=== PATIENT | female | born 1950 | race Caucasian/White ===

== ENCOUNTER 2018-02-20 14:21 | Emergency (ER) | payer OTHER, SELFPAY ==
[2018-02-20] VITALS (13 sets, daily range): BP systolic 100–177; BP diastolic 69–93; PULSE 75–103; RESP 14–18; TEMP 36.4; O2SAT 91–100; BMI 27.3
--- NOTE | 2018-02-20 14:40 | ED.ABDPAIN ---
HPI - Abdominal Pain <Ciara Barbosa PA-C - Last Filed: 02/20/18 22:38> General Chief Complaint: Abdominal Pain Stated Complaint: 'really bad stomach ache' Time Seen by Provider: 02/20/18 14:38 Source: patient Mode of arrival: ambulatory Limitations: no limitations History of Present Illness HPI narrative: This 67-year-old female comes in due to abdominal pain. She states that she has had ongoing intermittent postprandial abdominal pain for several years. She states she avoids drinking excess wine, coffee, fatty or heavy foods due to this and seems to do better, but she will still get flare-ups of pain that seemed to resolve on their own or with taking Tums and a probiotic. Today, after eating brunch pain came on again in the usual location but seems to be gradually worsening rather than resolving as usual. She points to the epigastric area. She states that pain is constant, nonradiating, no exacerbating or alleviating features. She states that she will occasionally have some nausea or vomiting with this but none currently. She does not have fever. She denies any urinary symptoms. She denies any bowel habit changes and states she had a normal bowel movement today. She denies chest pain or angelina dyspnea but states it is painful to take a deep breath. Related Data Home Medications Medication Instructions Recorded Confirmed No Known Home Medications 02/20/18 02/20/18 Allergies Allergy/AdvReac Type Severity Reaction Status Date / Time No Known Drug Allergies Allergy Verified 02/20/18 14:28 Review of Systems <Ciara Barbosa PA-C - Last Filed: 02/20/18 22:38> Review of Systems All systems reviewed & are unremarkable except as noted in HPI and below Exam <Ciara Barbosa PA-C - Last Filed: 02/20/18 22:38> Initial Vital Signs Initial Vital Signs: Vital Signs Pulse Rate 103 H 02/20/18 14:25 Respiratory Rate 18 02/20/18 14:25 Blood Pressure 129/93 H 02/20/18 14:25 Pulse Oximetry 100 02/20/18 14:25 GENERAL APPEARANCE: Patient sitting comfortably, in no distress. HEENT: PERRL, EOMI, no scleral icterus, normal oropharynx NECK: Supple LUNGS: Clear to auscultation bilaterally. HEART: Rate and rhythm regular, normal S1 and S2, no S3 or S4. ABDOMEN: Soft, nondistended, bowel sounds present x 4 quadrants, no masses palpable, no hepatosplenomegaly, no CVAT. She has moderate tenderness from the epigastrium over to the right upper quadrant with +Parekh sign. Minimal tenderness over the left lower quadrant to midline, none elsewhere. No guarding or rebound EXTREMITIES: No edema, no cyanosis DERMATOLOGIC: No jaundice or exanthem NEUROLOGIC: Alert and oriented with normal speech and coordination <Paulo Blanchard DO - Last Filed: 02/20/18 22:44> Initial Vital Signs Initial Vital Signs: Vital Signs Pulse Rate 103 H 02/20/18 14:25 Respiratory Rate 18 02/20/18 14:25 Blood Pressure 129/93 H 02/20/18 14:25 Pulse Oximetry 100 02/20/18 14:25 Course <Ciara Babrosa PA-C - Last Filed: 02/20/18 22:38> Orders Ordered: ED Orders 02/20/18 14:10 Complete Blood Count AUTO DIFF Stat Comprehensive Metabolic Panel Stat Lipase Stat Procalcitonin Stat Troponin I Stat 02/20/18 14:50 EKG-12 Lead Stat 02/20/18 14:51 US abdomen complete Stat 02/20/18 16:00 CT abdomen pelvis w con Stat 02/20/18 16:57 Lactate (Lactic Acid) Stat Discontinued Medications Hydromorphone HCl (Dilaudid) 1 mg IV NOW ONE Stop: 02/20/18 15:54 Last Admin: 02/20/18 16:00 Dose: 0.5 mg Hydromorphone HCl (Dilaudid) 0.5 mg IV NOW ONE Stop: 02/20/18 16:57 Last Admin: 02/20/18 16:58 Dose: 0.5 mg Sodium Chloride (Normal Saline 0.9%) 1,000 mls @ 1,000 mls/hr IV BOLUS ONE Stop: 02/20/18 15:49 Last Infusion: 02/20/18 17:11 Dose: 1,000 mls/hr Admin: 02/20/18 15:30 Dose: 1,000 mls/hr Sodium Chloride (Normal Saline 0.9%) 1,000 mls @ 1,000 mls/hr IV BOLUS ONE Stop: 02/20/18 18:50 Last Infusion: 02/20/18 21:32 Dose: 1,000 mls/hr Admin: 02/20/18 17:58 Dose: 1,000 mls/hr Promethazine HCl 25 mg/ Sodium (Chloride) 51 mls @ 204 mls/hr IV NOW ONE Stop: 02/20/18 20:23 Last Infusion: 02/20/18 21:34 Dose: 0 mls/hr Admin: 02/20/18 20:52 Dose: 204 mls/hr Ketorolac Tromethamine (Toradol) 30 mg IV NOW ONE Stop: 02/20/18 14:51 Last Admin: 02/20/18 15:33 Dose: Not Given Metoclopramide HCl (Reglan) 10 mg IV NOW ONE Stop: 02/20/18 17:51 Last Admin: 02/20/18 17:57 Dose: 10 mg Ondansetron HCl (Zofran) 4 mg IV NOW ONE Stop: 02/20/18 15:08 Last Admin: 02/20/18 15:30 Dose: 4 mg Reevaluation(s) Reevaluation #1: 1550: Patient reported improvement in pain, however she has had some recurrence of nausea now and is vomiting despite 2 doses of Zofran. Reglan ordered. Reviewed findings with Dr. Jimenez who agrees surgical consult is needed despite lack of clear findings on imaging to explain symptoms and white count. She does have a very large hiatal hernia. Reevaluation #2: 1830: Spoke with Dr. Mendes, university demonstrator for surgery, who reviewed CT scan and advise that he thinks this is more likely a paraesophageal hernia, concerned about strangulation. He states that this is more of a dumbbell shaped, he can see virtually all of the stomach in the chest including migration through the diaphragm. He advised urgent transfer to a larger surgical center. [facility] has been contacted. Patient was reassessed, currently non tender and resting comfortably Reevaluation #3: 2019: Following multiple discussions with [facility], [place], there coordinator has informed me she does have an accepting surgeon, Dr. Ocampo. At [facility]. Films have been transferred. Patient has been stable until now but just began to vomit again. Promethazine ordered. We are waiting for bed assignment and [facility] will coordinate getting the ambulance here for transfer Additional Reevaluation(s): 9932: I spoke with [facility] again. They had ordered a BLS rig that was not to arrive for 3 hr. Advise that patient needs urgent ALS transport. They have arranged with [facility] to be here in 30 min. Patient is comfortable for now and vomiting has resolved. She remains afebrile 2345: ALS rig never arrived. We have phoned [facility]. They apparently tried to discharge [place] with 1 of our local rigs however they are unable to take one out of service unless [place] or [place] cannot take. We have called [place] and they can have ALS rig here in 40 minutes. Dispatched. Patient is comfortable and stable. Has not had recurrent vomiting and declines more pain medication Vital Signs - 8 hr 02/20/18 15:34 02/20/18 16:30 02/20/18 17:00 Temperature Pulse Rate 97 H 94 H 75 Respiratory Rate 18 Blood Pressure [Right Arm] 137/91 H 114/69 108/78 Pulse Oximetry 93 93 02/20/18 17:54 02/20/18 19:00 02/20/18 19:30 Temperature Pulse Rate 86 89 92 H Respiratory Rate 16 Blood Pressure [Right Arm] 116/78 119/76 120/73 Pulse Oximetry 92 92 92 02/20/18 20:30 02/20/18 20:41 02/20/18 20:50 Temperature 97.6 F Pulse Rate 96 H 78 Respiratory Rate 14 Blood Pressure [Right Arm] 122/77 H 177/87 H Pulse Oximetry 91 95 02/20/18 21:18 02/20/18 21:30 02/20/18 22:30 Temperature 97.6 F Pulse Rate 98 H 97 H Respiratory Rate 16 16 Blood Pressure [Right Arm] 100/70 118/88 H Pulse Oximetry 95 99 <Paulo Blanchard, DO - Last Filed: 02/20/18 22:44> Orders Ordered: ED Orders 02/20/18 14:10 Complete Blood Count AUTO DIFF Stat Comprehensive Metabolic Panel Stat Lipase Stat Procalcitonin Stat Troponin I Stat 02/20/18 14:50 EKG-12 Lead Stat 02/20/18 14:51 US abdomen complete Stat 02/20/18 16:00 CT abdomen pelvis w con Stat 02/20/18 16:57 Lactate (Lactic Acid) Stat Discontinued Medications Hydromorphone HCl (Dilaudid) 1 mg IV NOW ONE Stop: 02/20/18 15:54 Last Admin: 02/20/18 16:00 Dose: 0.5 mg Hydromorphone HCl (Dilaudid) 0.5 mg IV NOW ONE Stop: 02/20/18 16:57 Last Admin: 02/20/18 16:58 Dose: 0.5 mg Sodium Chloride (Normal Saline 0.9%) 1,000 mls @ 1,000 mls/hr IV BOLUS ONE Stop: 02/20/18 15:49 Last Infusion: 02/20/18 17:11 Dose: 1,000 mls/hr Admin: 02/20/18 15:30 Dose: 1,000 mls/hr Sodium Chloride (Normal Saline 0.9%) 1,000 mls @ 1,000 mls/hr IV BOLUS ONE Stop: 02/20/18 18:50 Last Infusion: 02/20/18 21:32 Dose: 1,000 mls/hr Admin: 02/20/18 17:58 Dose: 1,000 mls/hr Promethazine HCl 25 mg/ Sodium (Chloride) 51 mls @ 204 mls/hr IV NOW ONE Stop: 02/20/18 20:23 Last Infusion: 02/20/18 21:34 Dose: 0 mls/hr Admin: 02/20/18 20:52 Dose: 204 mls/hr Ketorolac Tromethamine (Toradol) 30 mg IV NOW ONE Stop: 02/20/18 14:51 Last Admin: 02/20/18 15:33 Dose: Not Given Metoclopramide HCl (Reglan) 10 mg IV NOW ONE Stop: 02/20/18 17:51 Last Admin: 02/20/18 17:57 Dose: 10 mg Ondansetron HCl (Zofran) 4 mg IV NOW ONE Stop: 02/20/18 15:08 Last Admin: 02/20/18 15:30 Dose: 4 mg Vital Signs - 8 hr 02/20/18 15:34 02/20/18 16:30 02/20/18 17:00 Temperature Pulse Rate 97 H 94 H 75 Respiratory Rate 18 Blood Pressure [Right Arm] 137/91 H 114/69 108/78 Pulse Oximetry 93 93 02/20/18 17:54 02/20/18 19:00 02/20/18 19:30 Temperature Pulse Rate 86 89 92 H Respiratory Rate 16 Blood Pressure [Right Arm] 116/78 119/76 120/73 Pulse Oximetry 92 92 92 02/20/18 20:30 02/20/18 20:41 02/20/18 20:50 Temperature 97.6 F Pulse Rate 96 H 78 Respiratory Rate 14 Blood Pressure [Right Arm] 122/77 H 177/87 H Pulse Oximetry 91 95 02/20/18 21:18 02/20/18 21:30 02/20/18 22:30 Temperature 97.6 F Pulse Rate 98 H 97 H Respiratory Rate 16 16 Blood Pressure [Right Arm] 100/70 118/88 H Pulse Oximetry 95 99 MDM - Abdominal Pain <Ciara Barbosa PA-C - Last Filed: 02/20/18 22:38> Lab Data Attestation: I reviewed the patient's lab results. Result diagrams: 02/20/18 14:10 02/20/18 14:10 Lab Results 02/20/18 02/20/18 02/20/18 Range/Units 14:10 14:10 14:10 WBC 18.0 H (4.5-11.0) X10^3/uL RBC 4.39 (4.0-5.2) X10^6/uL Hgb 15.0 (12.0-16.0) g/dL Hct 43.3 (36-46) % MCV 98.6 (80-100) fL MCH 34.1 H (26-34) PG MCHC 34.6 (30-36) % RDW 12.3 (11.6-14.8) % Plt Count 282 (150-400) X10^3/uL Neut % (Auto) 89.6 H (50-75) % Lymph % (Auto) 7.6 L (25-40) % [place] % (Auto) 2.4 L (3-14) % Eos % (Auto) 0.1 L (2-4) % Baso % (Auto) 0.3 (0-2) % Neut # (Auto) 92968 H (9471-5871) /uL Sodium 143 (137-145) mmol/L Potassium 3.4 (3.4-5.1) mmol/L Chloride 102 (98-107) mmol/L Carbon Dioxide 27 (22-32) mmol/L BUN 21 H (7-17) mg/dL Creatinine 0.70 (0.52-1.04) mg/dL Estimated GFR > 60.0 (>60) mL/min BUN/Creatinine Ratio 30.0 H (6-22) Glucose 152 H (80-110) mg/dL Lactate (0.7-2.1) mmol/L Calcium 9.5 (8.4-10.2) mg/dL Total Bilirubin 0.6 (0.2-1.3) mg/dL AST 33 (14-36) IU/L ALT 35 (9-52) IU/L Alkaline Phosphatase 135 H (38-126) U/L Troponin I < 0.012 (0.01-0.034) ng/mL Total Protein 7.4 (6.3-8.2) g/dL Albumin 4.4 (3.5-5.0) g/dL Globulin 3.0 (1.7-4.1) g/dL Albumin/Globulin Ratio 1.5 (1.0-2.8) Lipase 107 (23-300) U/L Procalcitonin (<0.5) ng/mL 02/20/18 02/20/18 Range/Units 14:10 16:57 WBC (4.5-11.0) X10^3/uL RBC (4.0-5.2) X10^6/uL Hgb (12.0-16.0) g/dL Hct (36-46) % MCV (80-100) fL MCH (26-34) PG MCHC (30-36) % RDW (11.6-14.8) % Plt Count (150-400) X10^3/uL Neut % (Auto) (50-75) % Lymph % (Auto) (25-40) % [place] % (Auto) (3-14) % Eos % (Auto) (2-4) % Baso % (Auto) (0-2) % Neut # (Auto) (5918-1946) /uL Sodium (137-145) mmol/L Potassium (3.4-5.1) mmol/L Chloride (98-107) mmol/L Carbon Dioxide (22-32) mmol/L BUN (7-17) mg/dL Creatinine (0.52-1.04) mg/dL Estimated GFR (>60) mL/min BUN/Creatinine Ratio (6-22) Glucose (80-110) mg/dL Lactate 1.3 (0.7-2.1) mmol/L Calcium (8.4-10.2) mg/dL Total Bilirubin (0.2-1.3) mg/dL AST (14-36) IU/L ALT (9-52) IU/L Alkaline Phosphatase (38-126) U/L Troponin I (0.01-0.034) ng/mL Total Protein (6.3-8.2) g/dL Albumin (3.5-5.0) g/dL Globulin (1.7-4.1) g/dL Albumin/Globulin Ratio (1.0-2.8) Lipase (23-300) U/L Procalcitonin < 0.05 (<0.5) ng/mL Imaging Data CT scan - abdomen: Radiologist's impression: [address] [address] [address] Scan Report Signed Patient: Karis Marsh MR#: [id number] : 1950 Acct:[id number] Age/Sex: 67 / F Date of Service: 02/20/18 Loc: ED Accession Number: [id number] Procedure: CT abdomen pelvis w con Ordering Provider: Ciara Barbosa P.A-C PROCEDURE: CT ABDOMEN PELVIS W CON INDICATIONS: abdominal pain, white count TECHNIQUE: After the administration of intravenous contrast, 5 mm thick sections acquired from the diaphragm to the symphysis. 5 mm coronal and sagittal reformats were acquired. For radiation dose reduction, the following was used: automated exposure control, adjustment of mA and/or kV according to patient size. COMPARISON: [facility], , US ABDOMEN COMPLETE, 02/20/2018, 15:46. FINDINGS: Image quality: Excellent. ABDOMEN: Lung bases: Lung bases are clear. Heart size is normal. There is a large hiatal hernia seen, which contains the majority of the patient's stomach. Solid organs: Liver is normal in size and enhancement. Gallbladder wall is not thickened. Biliary system is non dilated. Pancreas enhances normally. Spleen is normal in size and enhancement. No adrenal nodules. Kidneys demonstrate normal size and enhancement, without hydronephrosis. Peritoneum and bowel: Bowel loops demonstrate normal wall thickness and caliber. No free fluid or air. Nodes and vessels: No retroperitoneal or mesenteric adenopathy by size criteria. Aorta and inferior vena cava are normal in size. Atherosclerotic calcification is noted. Miscellaneous: No ventral hernias. PELVIS: Genitourinary: Bladder wall thickness is normal. Miscellaneous: No inguinal hernias or adenopathy. Bones: No suspicious bony lesions. No vertebral body compression fractures. Focal L5-S1 degenerative change is seen. Mild dextroconvex scoliotic curvature is seen. IMPRESSION: Large hiatal hernia, which contains the majority of the patient's stomach. Incidental note is made of: Dextroconvex scoliotic curvature Focal S1 degenerative change Dictated by: Jacobo Yanes M.D. on 02/20/2018 at 16:19 Approved by: Jaocbo Yanes M.D. on 02/20/2018 at 16:[address] [address] Ultrasound Report Signed Patient: Karis Marsh MR#: [id number] : 1950 Acct:[id number] Age/Sex: 67 / F Date of Service: 02/20/18 Loc: ED Accession Number: [id number] Procedure: US abdomen complete Ordering Provider: Ciara Barbosa P.A-C PROCEDURE: US ABDOMEN COMPLETE INDICATIONS: RIGHT UPPER QUADRANT/EPIGASTRIC PAIN TECHNIQUE: Real-time scanning was performed of the abdominal and retroperitoneal organs, with image documentation. COMPARISON: None. FINDINGS: Liver: Liver is normal in size and homogeneous in echotexture. Gallbladder: Gallbladder is clear with normal wall thickness. No pericholecystic free fluid or reported Parekh sign. Biliary ducts: Intrahepatic bile ducts are non-dilated. Extrahepatic bile duct caliber measures 7.6 mm. Normal is 6-7 mm or less in diameter, or 10 mm or less post-cholecystectomy. Pancreas: Visualized portions of the pancreas are sonographically normal. Spleen: Spleen is normal in size and homogeneous in echotexture. Kidneys: Kidneys are normal in size and echotexture. Right kidney measures 9.7 cm long; left kidney measures 9.8 cm long. No hydronephrosis or nephrolithiasis. No solid masses. Aorta: Visualized aorta is normal in caliber at less than 3 cm. proximal aorta is obscured by bowel gas. Iliacs: Proximal common iliac arteries are normal in caliber at less than 2.5 cm. IVC: Intrahepatic inferior vena cava is patent. Miscellaneous: No free abdominal fluid. IMPRESSION: No acute findings to indicate cause of pain. Dictated by: Manuel Riojas M.D. on 02/20/2018 at 16:21 Approved by: Manuel Riojas M.D. on 02/20/2018 at 16:22 ECG Data Attestation: I personally reviewed and interpreted this ECG as follows: (sinus tach, rate 100) Prior ECG tracings: not available for review <Paulo Blanchard DO - Last Filed: 02/20/18 22:44> Lab Data Lab Results 02/20/18 02/20/18 02/20/18 Range/Units 14:10 14:10 14:10 WBC 18.0 H (4.5-11.0) X10^3/uL RBC 4.39 (4.0-5.2) X10^6/uL Hgb 15.0 (12.0-16.0) g/dL Hct 43.3 (36-46) % MCV 98.6 (80-100) fL MCH 34.1 H (26-34) PG MCHC 34.6 (30-36) % RDW 12.3 (11.6-14.8) % Plt Count 282 (150-400) X10^3/uL Neut % (Auto) 89.6 H (50-75) % Lymph % (Auto) 7.6 L (25-40) % [place] % (Auto) 2.4 L (3-14) % Eos % (Auto) 0.1 L (2-4) % Baso % (Auto) 0.3 (0-2) % Neut # (Auto) 32080 H (0858-5494) /uL Sodium 143 (137-145) mmol/L Potassium 3.4 (3.4-5.1) mmol/L Chloride 102 (98-107) mmol/L Carbon Dioxide 27 (22-32) mmol/L BUN 21 H (7-17) mg/dL Creatinine 0.70 (0.52-1.04) mg/dL Estimated GFR > 60.0 (>60) mL/min BUN/Creatinine Ratio 30.0 H (6-22) Glucose 152 H (80-110) mg/dL Lactate (0.7-2.1) mmol/L Calcium 9.5 (8.4-10.2) mg/dL Total Bilirubin 0.6 (0.2-1.3) mg/dL AST 33 (14-36) IU/L ALT 35 (9-52) IU/L Alkaline Phosphatase 135 H (38-126) U/L Troponin I < 0.012 (0.01-0.034) ng/mL Total Protein 7.4 (6.3-8.2) g/dL Albumin 4.4 (3.5-5.0) g/dL Globulin 3.0 (1.7-4.1) g/dL Albumin/Globulin Ratio 1.5 (1.0-2.8) Lipase 107 (23-300) U/L Procalcitonin (<0.5) ng/mL 02/20/18 02/20/18 Range/Units 14:10 16:57 WBC (4.5-11.0) X10^3/uL RBC (4.0-5.2) X10^6/uL Hgb (12.0-16.0) g/dL Hct (36-46) % MCV (80-100) fL MCH (26-34) PG MCHC (30-36) % RDW (11.6-14.8) % Plt Count (150-400) X10^3/uL Neut % (Auto) (50-75) % Lymph % (Auto) (25-40) % [place] % (Auto) (3-14) % Eos % (Auto) (2-4) % Baso % (Auto) (0-2) % Neut # (Auto) (5257-1194) /uL Sodium (137-145) mmol/L Potassium (3.4-5.1) mmol/L Chloride (98-107) mmol/L Carbon Dioxide (22-32) mmol/L BUN (7-17) mg/dL Creatinine (0.52-1.04) mg/dL Estimated GFR (>60) mL/min BUN/Creatinine Ratio (6-22) Glucose (80-110) mg/dL Lactate 1.3 (0.7-2.1) mmol/L Calcium (8.4-10.2) mg/dL Total Bilirubin (0.2-1.3) mg/dL AST (14-36) IU/L ALT (9-52) IU/L Alkaline Phosphatase (38-126) U/L Troponin I (0.01-0.034) ng/mL Total Protein (6.3-8.2) g/dL Albumin (3.5-5.0) g/dL Globulin (1.7-4.1) g/dL Albumin/Globulin Ratio (1.0-2.8) Lipase (23-300) U/L Procalcitonin < 0.05 (<0.5) ng/mL Discharge Plan Departure Patient Disposition: [facility] Clinical Impression: Incarcerated paraesophageal hernia Interventions: ED Discharge Assessment Last Done: 02/20/18 21:18 Prescriptions: No Action No Known Home Medications RF: 0 Referrals: Barry Connor MD [Primary Care Provider] - ED Cosign/Signout <Ciara Barbosa PA-C - Last Filed: 02/20/18 22:38> Sign Out Provider Sign Out Attestation: ALS rig is expected in the next 10 minutes. Patient is sitting comfortably. Signed out to Dr. blanchard at [phone] <Paulo Blanchard DO - Last Filed: 02/20/18 22:44> Cosign ED Attending Cosignature Attestation: I was available for consultation during the ER visit
--- NOTE | 2018-02-20 14:51 | DI.US.S_ITS ---
PROCEDURE: US ABDOMEN COMPLETE INDICATIONS: RIGHT UPPER QUADRANT/EPIGASTRIC PAIN TECHNIQUE: Real-time scanning was performed of the abdominal and retroperitoneal organs, with image documentation. COMPARISON: None. FINDINGS: Liver: Liver is normal in size and homogeneous in echotexture. Gallbladder: Gallbladder is clear with normal wall thickness. No pericholecystic free fluid or reported Parekh sign. Biliary ducts: Intrahepatic bile ducts are non-dilated. Extrahepatic bile duct caliber measures 7.6 mm. Normal is 6-7 mm or less in diameter, or 10 mm or less post-cholecystectomy. Pancreas: Visualized portions of the pancreas are sonographically normal. Spleen: Spleen is normal in size and homogeneous in echotexture. Kidneys: Kidneys are normal in size and echotexture. Right kidney measures 9.7 cm long; left kidney measures 9.8 cm long. No hydronephrosis or nephrolithiasis. No solid masses. Aorta: Visualized aorta is normal in caliber at less than 3 cm. proximal aorta is obscured by bowel gas. Iliacs: Proximal common iliac arteries are normal in caliber at less than 2.5 cm. IVC: Intrahepatic inferior vena cava is patent. Miscellaneous: No free abdominal fluid. IMPRESSION: No acute findings to indicate cause of pain. Dictated by: Manuel Riojas M.D. on 02/20/2018 at 16:21 Approved by: Manuel Riojas M.D. on 02/20/2018 at 16:22
--- NOTE | 2018-02-20 15:00 | ED_ITS ---
HPI - Abdominal Pain <Ciara Barbosa PA-C - Last Filed: 02/20/18 22:38> General Chief Complaint: Abdominal Pain Stated Complaint: 'really bad stomach ache' Time Seen by Provider: 02/20/18 14:38 Source: patient Mode of arrival: ambulatory Limitations: no limitations History of Present Illness HPI narrative: This 67-year-old female comes in due to abdominal pain. She states that she has had ongoing intermittent postprandial abdominal pain for several years. She states she avoids drinking excess wine, coffee, fatty or heavy foods due to this and seems to do better, but she will still get flare- ups of pain that seemed to resolve on their own or with taking Tums and a probiotic. Today, after eating brunch pain came on again in the usual location but seems to be gradually worsening rather than resolving as usual. She points to the epigastric area. She states that pain is constant, nonradiating, no exacerbating or alleviating features. She states that she will occasionally have some nausea or vomiting with this but none currently. She does not have fever. She denies any urinary symptoms. She denies any bowel habit changes and states she had a normal bowel movement today. She denies chest pain or angelina dyspnea but states it is painful to take a deep breath. Related Data Home Medications Medication Instructions Recorded Confirmed No Known Home Medications 02/20/18 02/20/18 Allergies Allergy/AdvReac Type Severity Reaction Status Date / Time No Known Drug Allergies Allergy Verified 02/20/18 14:28 Review of Systems <Ciara Barbosa PA-C - Last Filed: 02/20/18 22:38> Review of Systems All systems reviewed & are unremarkable except as noted in HPI and below Exam <Ciara Barbosa PA-C - Last Filed: 02/20/18 22:38> Initial Vital Signs Initial Vital Signs: Vital Signs Pulse Rate 103 H 02/20/18 14:25 Respiratory Rate 18 02/20/18 14:25 Blood Pressure 129/93 H 02/20/18 14:25 Pulse Oximetry 100 02/20/18 14:25 GENERAL APPEARANCE: Patient sitting comfortably, in no distress. HEENT: PERRL, EOMI, no scleral icterus, normal oropharynx NECK: Supple LUNGS: Clear to auscultation bilaterally. HEART: Rate and rhythm regular, normal S1 and S2, no S3 or S4. ABDOMEN: Soft, nondistended, bowel sounds present x 4 quadrants, no masses palpable, no hepatosplenomegaly, no CVAT. She has moderate tenderness from the epigastrium over to the right upper quadrant with +Parekh sign. Minimal tenderness over the left lower quadrant to midline, none elsewhere. No guarding or rebound EXTREMITIES: No edema, no cyanosis DERMATOLOGIC: No jaundice or exanthem NEUROLOGIC: Alert and oriented with normal speech and coordination <Paulo Blanchard DO - Last Filed: 02/20/18 22:44> Initial Vital Signs Initial Vital Signs: Vital Signs Pulse Rate 103 H 02/20/18 14:25 Respiratory Rate 18 02/20/18 14:25 Blood Pressure 129/93 H 02/20/18 14:25 Pulse Oximetry 100 02/20/18 14:25 Course <Ciara Barbosa PA-C - Last Filed: 02/20/18 22:38> Orders Ordered: ED Orders 02/20/18 14:10 Complete Blood Count AUTO DIFF Stat Comprehensive Metabolic Panel Stat Lipase Stat Procalcitonin Stat Troponin I Stat 02/20/18 14:50 EKG-12 Lead Stat 02/20/18 14:51 US abdomen complete Stat 02/20/18 16:00 CT abdomen pelvis w con Stat 02/20/18 16:57 Lactate (Lactic Acid) Stat Discontinued Medications Hydromorphone HCl (Dilaudid) 1 mg IV NOW ONE Stop: 02/20/18 15:54 Last Admin: 02/20/18 16:00 Dose: 0.5 mg Hydromorphone HCl (Dilaudid) 0.5 mg IV NOW ONE Stop: 02/20/18 16:57 Last Admin: 02/20/18 16:58 Dose: 0.5 mg Sodium Chloride (Normal Saline 0.9%) 1,000 mls @ 1,000 mls/hr IV BOLUS ONE Stop: 02/20/18 15:49 Last Infusion: 02/20/18 17:11 Dose: 1,000 mls/hr Admin: 02/20/18 15:30 Dose: 1,000 mls/hr Sodium Chloride (Normal Saline 0.9%) 1,000 mls @ 1,000 mls/hr IV BOLUS ONE Stop: 02/20/18 18:50 Last Infusion: 02/20/18 21:32 Dose: 1,000 mls/hr Admin: 02/20/18 17:58 Dose: 1,000 mls/hr Promethazine HCl 25 mg/ Sodium (Chloride) 51 mls @ 204 mls/hr IV NOW ONE Stop: 02/20/18 20:23 Last Infusion: 02/20/18 21:34 Dose: 0 mls/hr Admin: 02/20/18 20:52 Dose: 204 mls/hr Ketorolac Tromethamine (Toradol) 30 mg IV NOW ONE Stop: 02/20/18 14:51 Last Admin: 02/20/18 15:33 Dose: Not Given Metoclopramide HCl (Reglan) 10 mg IV NOW ONE Stop: 02/20/18 17:51 Last Admin: 02/20/18 17:57 Dose: 10 mg Ondansetron HCl (Zofran) 4 mg IV NOW ONE Stop: 02/20/18 15:08 Last Admin: 02/20/18 15:30 Dose: 4 mg Reevaluation(s) Reevaluation #1: 1550: Patient reported improvement in pain, however she has had some recurrence of nausea now and is vomiting despite 2 doses of Zofran. Reglan ordered. Reviewed findings with Dr. Jimenez who agrees surgical consult is needed despite lack of clear findings on imaging to explain symptoms and white count. She does have a very large hiatal hernia. Reevaluation #2: 1830: Spoke with Dr. Mendes, doll surgeon for surgery, who reviewed CT scan and advise that he thinks this is more likely a paraesophageal hernia, concerned about strangulation. He states that this is more of a dumbbell shaped, he can see virtually all of the stomach in the chest including migration through the diaphragm. He advised urgent transfer to a larger surgical center. [facility] has been contacted. Patient was reassessed, currently non tender and resting comfortably Reevaluation #3: 2019: Following multiple discussions with [facility], [place], there coordinator has informed me she does have an accepting surgeon, Dr. Ocampo. At [facility]. Films have been transferred. Patient has been stable until now but just began to vomit again. Promethazine ordered. We are waiting for bed assignment and [facility] will coordinate getting the ambulance here for transfer Additional Reevaluation(s): 2900: I spoke with [facility] again. They had ordered a BLS rig that was not to arrive for 3 hr. Advise that patient needs urgent ALS transport. They have arranged with [place] [facility] to be here in 30 min. Patient is comfortable for now and vomiting has resolved. She remains afebrile 2345: ALS rig never arrived. We have phoned [facility]. They apparently tried to discharge [place] with 1 of our local rigs however they are unable to take one out of service unless [place] or [place] cannot take. We have called [place] and they can have ALS rig here in 40 minutes. Dispatched. Patient is comfortable and stable. Has not had recurrent vomiting and declines more pain medication Vital Signs - 8 hr 02/20/18 15:34 02/20/18 16:30 02/20/18 17:00 Temperature Pulse Rate 97 H 94 H 75 Respiratory Rate 18 Blood Pressure [Right Arm] 137/91 H 114/69 108/78 Pulse Oximetry 93 93 02/20/18 17:54 02/20/18 19:00 02/20/18 19:30 Temperature Pulse Rate 86 89 92 H Respiratory Rate 16 Blood Pressure [Right Arm] 116/78 119/76 120/73 Pulse Oximetry 92 92 92 02/20/18 20:30 02/20/18 20:41 02/20/18 20:50 Temperature 97.6 F Pulse Rate 96 H 78 Respiratory Rate 14 Blood Pressure [Right Arm] 122/77 H 177/87 H Pulse Oximetry 91 95 02/20/18 21:18 02/20/18 21:30 02/20/18 22:30 Temperature 97.6 F Pulse Rate 98 H 97 H Respiratory Rate 16 16 Blood Pressure [Right Arm] 100/70 118/88 H Pulse Oximetry 95 99 <Paulo Blanchard, DO - Last Filed: 02/20/18 22:44> Orders Ordered: ED Orders 02/20/18 14:10 Complete Blood Count AUTO DIFF Stat Comprehensive Metabolic Panel Stat Lipase Stat Procalcitonin Stat Troponin I Stat 02/20/18 14:50 EKG-12 Lead Stat 02/20/18 14:51 US abdomen complete Stat 02/20/18 16:00 CT abdomen pelvis w con Stat 02/20/18 16:57 Lactate (Lactic Acid) Stat Discontinued Medications Hydromorphone HCl (Dilaudid) 1 mg IV NOW ONE Stop: 02/20/18 15:54 Last Admin: 02/20/18 16:00 Dose: 0.5 mg Hydromorphone HCl (Dilaudid) 0.5 mg IV NOW ONE Stop: 02/20/18 16:57 Last Admin: 02/20/18 16:58 Dose: 0.5 mg Sodium Chloride (Normal Saline 0.9%) 1,000 mls @ 1,000 mls/hr IV BOLUS ONE Stop: 02/20/18 15:49 Last Infusion: 02/20/18 17:11 Dose: 1,000 mls/hr Admin: 02/20/18 15:30 Dose: 1,000 mls/hr Sodium Chloride (Normal Saline 0.9%) 1,000 mls @ 1,000 mls/hr IV BOLUS ONE Stop: 02/20/18 18:50 Last Infusion: 02/20/18 21:32 Dose: 1,000 mls/hr Admin: 02/20/18 17:58 Dose: 1,000 mls/hr Promethazine HCl 25 mg/ Sodium (Chloride) 51 mls @ 204 mls/hr IV NOW ONE Stop: 02/20/18 20:23 Last Infusion: 02/20/18 21:34 Dose: 0 mls/hr Admin: 02/20/18 20:52 Dose: 204 mls/hr Ketorolac Tromethamine (Toradol) 30 mg IV NOW ONE Stop: 02/20/18 14:51 Last Admin: 02/20/18 15:33 Dose: Not Given Metoclopramide HCl (Reglan) 10 mg IV NOW ONE Stop: 02/20/18 17:51 Last Admin: 02/20/18 17:57 Dose: 10 mg Ondansetron HCl (Zofran) 4 mg IV NOW ONE Stop: 02/20/18 15:08 Last Admin: 02/20/18 15:30 Dose: 4 mg Vital Signs - 8 hr 02/20/18 15:34 02/20/18 16:30 02/20/18 17:00 Temperature Pulse Rate 97 H 94 H 75 Respiratory Rate 18 Blood Pressure [Right Arm] 137/91 H 114/69 108/78 Pulse Oximetry 93 93 02/20/18 17:54 02/20/18 19:00 02/20/18 19:30 Temperature Pulse Rate 86 89 92 H Respiratory Rate 16 Blood Pressure [Right Arm] 116/78 119/76 120/73 Pulse Oximetry 92 92 92 02/20/18 20:30 02/20/18 20:41 02/20/18 20:50 Temperature 97.6 F Pulse Rate 96 H 78 Respiratory Rate 14 Blood Pressure [Right Arm] 122/77 H 177/87 H Pulse Oximetry 91 95 02/20/18 21:18 02/20/18 21:30 02/20/18 22:30 Temperature 97.6 F Pulse Rate 98 H 97 H Respiratory Rate 16 16 Blood Pressure [Right Arm] 100/70 118/88 H Pulse Oximetry 95 99 MDM - Abdominal Pain <Ciara Barbosa PA-C - Last Filed: 02/20/18 22:38> Lab Data Attestation: I reviewed the patient's lab results. Result diagrams: 02/20/18 14:10 02/20/18 14:10 Lab Results 02/20/18 02/20/18 02/20/18 Range/Units 14:10 14:10 14:10 WBC 18.0 H (4.5-11.0) X10^3/uL RBC 4.39 (4.0-5.2) X10^6/uL Hgb 15.0 (12.0-16.0) g/dL Hct 43.3 (36-46) % MCV 98.6 (80-100) fL MCH 34.1 H (26-34) PG MCHC 34.6 (30-36) % RDW 12.3 (11.6-14.8) % Plt Count 282 (150-400) X10^3/uL Neut % (Auto) 89.6 H (50-75) % Lymph % (Auto) 7.6 L (25-40) % Lane % (Auto) 2.4 L (3-14) % Eos % (Auto) 0.1 L (2-4) % Baso % (Auto) 0.3 (0-2) % Neut # (Auto) 42668 H (6641-0792) /uL Sodium 143 (137-145) mmol/L Potassium 3.4 (3.4-5.1) mmol/L Chloride 102 (98-107) mmol/L Carbon Dioxide 27 (22-32) mmol/L BUN 21 H (7-17) mg/dL Creatinine 0.70 (0.52-1.04) mg/dL Estimated GFR > 60.0 (>60) mL/min BUN/Creatinine Ratio 30.0 H (6-22) Glucose 152 H (80-110) mg/dL Lactate (0.7-2.1) mmol/L Calcium 9.5 (8.4-10.2) mg/dL Total Bilirubin 0.6 (0.2-1.3) mg/dL AST 33 (14-36) IU/L ALT 35 (9-52) IU/L Alkaline Phosphatase 135 H (38-126) U/L Troponin I < 0.012 (0.01-0.034) ng/mL Total Protein 7.4 (6.3-8.2) g/dL Albumin 4.4 (3.5-5.0) g/dL Globulin 3.0 (1.7-4.1) g/dL Albumin/Globulin Ratio 1.5 (1.0-2.8) Lipase 107 (23-300) U/L Procalcitonin (<0.5) ng/mL 02/20/18 02/20/18 Range/Units 14:10 16:57 WBC (4.5-11.0) X10^3/uL RBC (4.0-5.2) X10^6/uL Hgb (12.0-16.0) g/dL Hct (36-46) % MCV (80-100) fL MCH (26-34) PG MCHC (30-36) % RDW (11.6-14.8) % Plt Count (150-400) X10^3/uL Neut % (Auto) (50-75) % Lymph % (Auto) (25-40) % Lane % (Auto) (3-14) % Eos % (Auto) (2-4) % Baso % (Auto) (0-2) % Neut # (Auto) (7278-7739) /uL Sodium (137-145) mmol/L Potassium (3.4-5.1) mmol/L Chloride (98-107) mmol/L Carbon Dioxide (22-32) mmol/L BUN (7-17) mg/dL Creatinine (0.52-1.04) mg/dL Estimated GFR (>60) mL/min BUN/Creatinine Ratio (6-22) Glucose (80-110) mg/dL Lactate 1.3 (0.7-2.1) mmol/L Calcium (8.4-10.2) mg/dL Total Bilirubin (0.2-1.3) mg/dL AST (14-36) IU/L ALT (9-52) IU/L Alkaline Phosphatase (38-126) U/L Troponin I (0.01-0.034) ng/mL Total Protein (6.3-8.2) g/dL Albumin (3.5-5.0) g/dL Globulin (1.7-4.1) g/dL Albumin/Globulin Ratio (1.0-2.8) Lipase (23-300) U/L Procalcitonin < 0.05 (<0.5) ng/mL Imaging Data CT scan - abdomen: Radiologist's impression: [address] [address] [address] Scan Report Signed Patient: Karis Marsh MR#: [id number] : 1950 Acct:[id number] Age/Sex: 67 / F Date of Service: 02/20/18 Loc: ED Accession Number: [id number] Procedure: CT abdomen pelvis w con Ordering Provider: Ciara Barbosa P.A-C PROCEDURE: CT ABDOMEN PELVIS W CON INDICATIONS: abdominal pain, white count TECHNIQUE: After the administration of intravenous contrast, 5 mm thick sections acquired from the diaphragm to the symphysis. 5 mm coronal and sagittal reformats were acquired. For radiation dose reduction, the following was used: automated exposure control, adjustment of mA and/or kV according to patient size. COMPARISON: [facility], , US ABDOMEN COMPLETE, 02/20/2018, 15:46. FINDINGS: Image quality: Excellent. ABDOMEN: Lung bases: Lung bases are clear. Heart size is normal. There is a large hiatal hernia seen, which contains the majority of the patient's stomach. Solid organs: Liver is normal in size and enhancement. Gallbladder wall is not thickened. Biliary system is non dilated. Pancreas enhances normally. Spleen is normal in size and enhancement. No adrenal nodules. Kidneys demonstrate normal size and enhancement, without hydronephrosis. Peritoneum and bowel: Bowel loops demonstrate normal wall thickness and caliber. No free fluid or air. Nodes and vessels: No retroperitoneal or mesenteric adenopathy by size criteria. Aorta and inferior vena cava are normal in size. Atherosclerotic calcification is noted. Miscellaneous: No ventral hernias. PELVIS: Genitourinary: Bladder wall thickness is normal. Miscellaneous: No inguinal hernias or adenopathy. Bones: No suspicious bony lesions. No vertebral body compression fractures. Focal L5-S1 degenerative change is seen. Mild dextroconvex scoliotic curvature is seen. IMPRESSION: Large hiatal hernia, which contains the majority of the patient's stomach. Incidental note is made of: Dextroconvex scoliotic curvature Focal S1 degenerative change Dictated by: Jacobo Yanes M.D. on 02/20/2018 at 16:19 Approved by: Jacobo Yanes M.D. on 02/20/2018 at 16:[address] [address] Ultrasound Report Signed Patient: Karis Marsh MR#: [id number] : 1950 Acct:[id number] Age/Sex: 67 / F Date of Service: 02/20/18 Loc: ED Accession Number: [id number] Procedure: US abdomen complete Ordering Provider: Ciara Barbosa P.A-C PROCEDURE: US ABDOMEN COMPLETE INDICATIONS: RIGHT UPPER QUADRANT/EPIGASTRIC PAIN TECHNIQUE: Real-time scanning was performed of the abdominal and retroperitoneal organs, with image documentation. COMPARISON: None. FINDINGS: Liver: Liver is normal in size and homogeneous in echotexture. Gallbladder: Gallbladder is clear with normal wall thickness. No pericholecystic free fluid or reported Parekh sign. Biliary ducts: Intrahepatic bile ducts are non-dilated. Extrahepatic bile duct caliber measures 7.6 mm. Normal is 6-7 mm or less in diameter, or 10 mm or less post-cholecystectomy. Pancreas: Visualized portions of the pancreas are sonographically normal. Spleen: Spleen is normal in size and homogeneous in echotexture. Kidneys: Kidneys are normal in size and echotexture. Right kidney measures 9.7 cm long; left kidney measures 9.8 cm long. No hydronephrosis or nephrolithiasis. No solid masses. Aorta: Visualized aorta is normal in caliber at less than 3 cm. proximal aorta is obscured by bowel gas. Iliacs: Proximal common iliac arteries are normal in caliber at less than 2.5 cm. IVC: Intrahepatic inferior vena cava is patent. Miscellaneous: No free abdominal fluid. IMPRESSION: No acute findings to indicate cause of pain. Dictated by: Manuel Riojas M.D. on 02/20/2018 at 16:21 Approved by: Manuel Riojas M.D. on 02/20/2018 at 16:22 ECG Data Attestation: I personally reviewed and interpreted this ECG as follows: (sinus tach, rate 100) Prior ECG tracings: not available for review <Paulo Blanchard DO - Last Filed: 02/20/18 22:44> Lab Data Lab Results 02/20/18 02/20/18 02/20/18 Range/Units 14:10 14:10 14:10 WBC 18.0 H (4.5-11.0) X10^3/uL RBC 4.39 (4.0-5.2) X10^6/uL Hgb 15.0 (12.0-16.0) g/dL Hct 43.3 (36-46) % MCV 98.6 (80-100) fL MCH 34.1 H (26-34) PG MCHC 34.6 (30-36) % RDW 12.3 (11.6-14.8) % Plt Count 282 (150-400) X10^3/uL Neut % (Auto) 89.6 H (50-75) % Lymph % (Auto) 7.6 L (25-40) % Lane % (Auto) 2.4 L (3-14) % Eos % (Auto) 0.1 L (2-4) % Baso % (Auto) 0.3 (0-2) % Neut # (Auto) 62762 H (8016-3980) /uL Sodium 143 (137-145) mmol/L Potassium 3.4 (3.4-5.1) mmol/L Chloride 102 (98-107) mmol/L Carbon Dioxide 27 (22-32) mmol/L BUN 21 H (7-17) mg/dL Creatinine 0.70 (0.52-1.04) mg/dL Estimated GFR > 60.0 (>60) mL/min BUN/Creatinine Ratio 30.0 H (6-22) Glucose 152 H (80-110) mg/dL Lactate (0.7-2.1) mmol/L Calcium 9.5 (8.4-10.2) mg/dL Total Bilirubin 0.6 (0.2-1.3) mg/dL AST 33 (14-36) IU/L ALT 35 (9-52) IU/L Alkaline Phosphatase 135 H (38-126) U/L Troponin I < 0.012 (0.01-0.034) ng/mL Total Protein 7.4 (6.3-8.2) g/dL Albumin 4.4 (3.5-5.0) g/dL Globulin 3.0 (1.7-4.1) g/dL Albumin/Globulin Ratio 1.5 (1.0-2.8) Lipase 107 (23-300) U/L Procalcitonin (<0.5) ng/mL 02/20/18 02/20/18 Range/Units 14:10 16:57 WBC (4.5-11.0) X10^3/uL RBC (4.0-5.2) X10^6/uL Hgb (12.0-16.0) g/dL Hct (36-46) % MCV (80-100) fL MCH (26-34) PG MCHC (30-36) % RDW (11.6-14.8) % Plt Count (150-400) X10^3/uL Neut % (Auto) (50-75) % Lymph % (Auto) (25-40) % Lane % (Auto) (3-14) % Eos % (Auto) (2-4) % Baso % (Auto) (0-2) % Neut # (Auto) (9392-4722) /uL Sodium (137-145) mmol/L Potassium (3.4-5.1) mmol/L Chloride (98-107) mmol/L Carbon Dioxide (22-32) mmol/L BUN (7-17) mg/dL Creatinine (0.52-1.04) mg/dL Estimated GFR (>60) mL/min BUN/Creatinine Ratio (6-22) Glucose (80-110) mg/dL Lactate 1.3 (0.7-2.1) mmol/L Calcium (8.4-10.2) mg/dL Total Bilirubin (0.2-1.3) mg/dL AST (14-36) IU/L ALT (9-52) IU/L Alkaline Phosphatase (38-126) U/L Troponin I (0.01-0.034) ng/mL Total Protein (6.3-8.2) g/dL Albumin (3.5-5.0) g/dL Globulin (1.7-4.1) g/dL Albumin/Globulin Ratio (1.0-2.8) Lipase (23-300) U/L Procalcitonin < 0.05 (<0.5) ng/mL Discharge Plan Departure Patient Disposition: General Acute Hospital Clinical Impression: Incarcerated paraesophageal hernia Interventions: ED Discharge Assessment Last Done: 02/20/18 21:18 Prescriptions: No Action No Known Home Medications RF: 0 Referrals: Barry Connor MD [Primary Care Provider] - ED Cosign/Signout <Ciara Barbosa PA-C - Last Filed: 02/20/18 22:38> Sign Out Provider Sign Out Attestation: ALS rig is expected in the next 10 minutes. Patient is sitting comfortably. Signed out to Dr. blanchard at [phone] <Paulo Blanchard DO - Last Filed: 02/20/18 22:44> Cosign ED Attending Cosignature Attestation: I was available for consultation during the ER visit
[2018-02-20] MEDS: ONDANSETRON 4 MG/2 ML INJ IV (15:30)
[2018-02-20] MEDS: SODIUM CHLORIDE 0.9% 1,000 ML 1000 ML IV ×2 (15:30→17:58)
[2018-02-20 15:33] LABS: Add Manual Diff / Slide Review NO; Basophils Percent Auto 0.3 % (0-2); Eosinophils Percent Auto 0.1 % (2-4); Hematocrit 43.3 % (36-46); Lymphocytes Percent Auto 7.6 % (25-40); Mean Corpuscular HGB Conc 34.6 % (30-36); Mean Corpuscular Hemoglobin 34.1 PG (26-34); Mean Corpuscular Volume 98.6 fL (80-100); Monocytes Percent Auto 2.4 % (3-14); Neutrophils Absolute Auto 16200 /uL (3000-5900); Neutrophils Percent Auto 89.6 % (50-75); Platelet Count 282 X10^3/uL (150-400); Red Blood Cell Count 4.39 X10^6/uL (4.0-5.2); Red Cell Distribution Width 12.3 % (11.6-14.8)
[2018-02-20 15:42] LABS: Alanine Aminotransferase 35 IU/L (9-52); Albumin 4.4 g/dL (3.5-5.0); Albumin Globulin Ratio 1.5 (1.0-2.8); Alkaline Phosphatase 135 U/L (38-126); Aspartate Aminotransferase 33 IU/L (14-36); Bilirubin Total 0.6 mg/dL (0.2-1.3); Blood Urea Nitrogen 21 mg/dL (7-17); Calcium 9.5 mg/dL (8.4-10.2); Carbon Dioxide 27 mmol/L (22-32); Chloride 102 mmol/L (98-107); Estimated Glomerular Filt Rate > 60.0 mL/min (>60); Glucose 152 mg/dL (80-110); HEMOLYSIS 16 (0-50); Lipase 107 U/L (23-300); Potassium 3.4 mmol/L (3.4-5.1); Sodium 143 mmol/L (137-145); Total Protein 7.4 g/dL (6.3-8.2)
[2018-02-20 15:58] LABS: Troponin I < 0.012 ng/mL (0.01-0.034)
[2018-02-20] MEDS: HYDROMORPHONE 0.5 MG INJ 1 MG IV (16:00)
--- NOTE | 2018-02-20 16:00 | DI.CT.S_ITS ---
PROCEDURE: CT ABDOMEN PELVIS W CON INDICATIONS: abdominal pain, white count TECHNIQUE: After the administration of intravenous contrast, 5 mm thick sections acquired from the diaphragm to the symphysis. 5 mm coronal and sagittal reformats were acquired. For radiation dose reduction, the following was used: automated exposure control, adjustment of mA and/or kV according to patient size. COMPARISON: [facility], , US ABDOMEN COMPLETE, 02/20/2018, 15:46. FINDINGS: Image quality: Excellent. ABDOMEN: Lung bases: Lung bases are clear. Heart size is normal. There is a large hiatal hernia seen, which contains the majority of the patient's stomach. Solid organs: Liver is normal in size and enhancement. Gallbladder wall is not thickened. Biliary system is non dilated. Pancreas enhances normally. Spleen is normal in size and enhancement. No adrenal nodules. Kidneys demonstrate normal size and enhancement, without hydronephrosis. Peritoneum and bowel: Bowel loops demonstrate normal wall thickness and caliber. No free fluid or air. Nodes and vessels: No retroperitoneal or mesenteric adenopathy by size criteria. Aorta and inferior vena cava are normal in size. Atherosclerotic calcification is noted. Miscellaneous: No ventral hernias. PELVIS: Genitourinary: Bladder wall thickness is normal. Miscellaneous: No inguinal hernias or adenopathy. Bones: No suspicious bony lesions. No vertebral body compression fractures. Focal L5-S1 degenerative change is seen. Mild dextroconvex scoliotic curvature is seen. IMPRESSION: Large hiatal hernia, which contains the majority of the patient's stomach. Incidental note is made of: Dextroconvex scoliotic curvature Focal S1 degenerative change Dictated by: Jacobo Yanes M.D. on 02/20/2018 at 16:19 Approved by: Jacobo Yanes M.D. on 02/20/2018 at 16:25
[2018-02-20] MEDS: HYDROMORPHONE 0.5 MG INJ IV (16:58)
--- NOTE | 2018-02-20 16:58 | PC.NURSE ---
patient given .5 mg Dilaudid and refused second .5 until pain increased - about 10 minutes ago - conferred with HCP and the second portion of the initial order was given as a verbal order. Med administered and patient reports pain currently 3/10 vitals stable at present
--- NOTE | 2018-02-20 17:06 | PC.NURSE ---
lab finished drawing lactate and INR and test lab technician arrived to take patient to radiology
[2018-02-20 17:15] LABS: Procalcitonin < 0.05 ng/mL (<0.5)
[2018-02-20 17:24] LABS: Lactate (Lactic Acid) 1.3 mmol/L (0.7-2.1)
[2018-02-20] MEDS: METOCLOPRAMIDE 10 MG/2 ML INJ IV (17:57)
[2018-02-20] MEDS: PROMETHAZINE 25 MG in SODIUM CHLORIDE 0.9% 50 ML 204 ML IV (20:52)
--- NOTE | 2018-02-20 20:59 | PC.NURSE ---
Phenergan infusing without redness or irritation at site. Pt. reports feeling less nauseated and without pain at present. VS stable, pt. remains afebrile. Pt. reminded of NPO status denies further need. Remains A&O x 4
--- NOTE | 2018-02-20 21:27 | PC.NURSE ---
report completed to Yuli at [facility]
--- NOTE | 2018-02-20 22:27 | PC.NURSE ---
Pt. still awaiting transport. IV flushed to assess patency - no signs of irritation/infiltration. denies needs. Reports pain 0/10 denies nausea at present. Purse, shoes and clothes found on stool under blankets and bagged to accompany her when transport arrives.
--- NOTE | 2018-02-20 23:06 | PC.NURSE ---
[facility] here to get patient.
== END 2018-02-20 23:07 | disposition short-term general hospital (02) ==
PROVIDERS: Emergency Provider Internal Medicine; PCP Family Medicine Geriatric Medicine
DX: K44.0 Diaphragmatic hernia with obstruction, without gangrene (principal)
CPT/HCPCS: 36591; 74177; 76700; 80053; 81003; 83605; 83690; 84145; 84484; 85025; 93005; 96361; 96365; 96375; 99285; J1170; J1885; J2405; J2550; J2765; Q9967

== ENCOUNTER → 2021-01-19 08:23 | Outpatient (CLI) | payer MEDICARE, OTHER, SELFPAY ==
--- NOTE | 2021-01-19 08:26 | DI.MRI.S_ITS ---
PROCEDURE: MR LUMBAR SPINE WO CON INDICATIONS: Lumbar radiculopathy TECHNIQUE: Noncontrast sagittal T1 spin echo and T2 fast echo, sagittal STIR, axial T1 and T2 fast spin echo through the lumbar spine. In cases with scoliosis, additional coronal T2 fast spin echo may be performed. COMPARISON: Outside Facility, RG, XR L-SPINE 4-6V, 10/26/2020, 9:51. [facility], CT, CT ABDOMEN PELVIS W CON, 02/20/2018, 16:57. FINDINGS: Image quality: Excellent. Alignment and Curvature: There is normal bony alignment. Bone Marrow: Marrow is of normal overall signal. No acute vertebral body compression fractures. Spinal Cord: Conus medullaris terminates at the L1 level. Visualized cord demonstrates normal signal and size. Paraspinous Soft Tissues: No paravertebral masses. T12-L1: Normal appearance. L1-L2: Normal appearance. L2-L3: The disc height and disc signal are relatively well preserved. Minimal disc bulge is seen. No significant neural foraminal or central canal narrowing can be seen. L3-L4: The disc height is well-preserved. Loss of disc signal is seen at this level. Mild generalized disc bulge is seen. Mild to moderate facet hypertrophy is seen. There is [id number] bilateral neural foraminal narrowing seen, left worse than right. Mild to moderate central canal narrowing is seen. L4-L5: The disc height is well-preserved. Loss of disc signal is seen at this level. Mild to moderate disc bulge is seen. At least moderate facet hypertrophy is seen. Associated hypertrophy of the ligamentum flavum can be seen. Fluid is seen within the facet joints themselves. There is moderate to severe bilateral neural foraminal narrowing seen at this level. There is a degree of compression seen upon the exiting nerve roots. Mild to moderate central canal narrowing is seen. L5-S1: Moderate to severe loss of disc height and disc signal can be seen. At least moderate disc bulge is seen, which is eccentric to the right. There is a focal annular fissure seen posteriorly. Mild to moderate facet hypertrophy is seen. There is at least moderate left-sided and moderate to severe right-sided neural foraminal narrowing seen. No significant central canal narrowing is seen. IMPRESSION: Multiple levels of lumbar spine degenerative change are seen, which are worst at L4-L5 and L5-S1. Dictated by: Jacobo Yanes M.D. on 01/19/2021 at 8:41 Approved by: Jacobo Yanes M.D. on 01/19/2021 at 8:45
== END ==
PROVIDERS: PCP Family Medicine; Referring Provider Physical Medicine & Rehabilitation; Visit Provider Physical Medicine & Rehabilitation
DX: M47.26 Other spondylosis with radiculopathy, lumbar region (principal); M47.27 Other spondylosis with radiculopathy, lumbosacral region
CPT/HCPCS: 72148

== ENCOUNTER 2021-07-12 09:57 | Outpatient (CLI) | payer MEDICARE, OTHER, SELFPAY ==
[2021-07-12] VITALS (8 sets, daily range): BP systolic 110–138; BP diastolic 68–88; PULSE 87–95; RESP 9–21; TEMP 36.7; O2SAT 97–100
--- NOTE | 2021-07-12 10:00 | DI.RAD.S_ITS ---
PROCEDURE: PAIN L/S TRANSFORAM INJECT NIKHIL COMPARISON: None. INDICATIONS: SPONDYLOSIS FINDINGS: Intraoperative fluoroscopic images of lower lumbar spine shows needle placement bilaterally at L5-S1 level with injection of small amount of contrast material. IMPRESSION: Fluoro guidance was provided intraoperatively for bilateral L5-S1 transforaminal epidural steroid injection by ordering physician. Dictated by: Osmin Vale M.D. on 07/12/2021 at 12:17 Approved by: Osmin Vale M.D. on 07/12/2021 at 12:18
[2021-07-12] MEDS: fentaNYL 100 MCG/2 ML INJ 50 MCG IV (10:58)
[2021-07-12] MEDS: MIDAZOLAM 5 MG/5 ML VIAL IV (10:58)
[2021-07-12] MEDS: IOPAMIDOL 15 ML VIAL 3 ML INJ (11:03)
[2021-07-12] MEDS: BUPIVACAINE 0.25% (PF) VIAL 2 ML INJ (11:04)
[2021-07-12] MEDS: BETAMETHASONE 30 MG/5 ML MDV 12 MG INJ (11:04)
[2021-07-12] MEDS: DEXAMETHASONE 10 MG/ML VIAL 20 MG INJ (11:05)
--- NOTE | 2021-07-12 11:18 | PM.PROC.IR.1 ---
Date/Time/Diagnoses Date of procedure: 07/12/21 Time of procedure: 11:18 Pre-procedure diagnosis: 1. FORAMINAL STENOSIS WITH LE SYMPTOMS Post-procedure diagnosis: same Procedure Notes Procedure: 1. FLUOROSCOPICALLY GUIDED CONTRAST CONTROLLED TRANSFORAMINAL EPIDURAL STEROID INJECTION - BILATERAL L5/S1 TFESI Indications: Karis is referred by Dr. Kerr for treatment of Foraminal Stenosis with bilateral LE Symptoms Physician: Brando Davidson Total Fluoroscopy time (seconds): 15 Total sedation minutes: 14 Complications: none Procedure in detail & Post-procedure care: FINDINGS Foraminal Nerve Root Compression secondary to disc disease and facet hypertrophy DESCRIPTION OF PROCEDURE Following review of allergy and review of potential side effects and complications, including, but not necessarily limited to, infection, allergic reaction, local tissue breakdown, stroke, temporary or permanent nerve injury, paralysis, and possible , the patient indicated that the patient understood and agreed to proceed. An informed consent document was signed by the patient, witnessed by a nurse, and placed in the patient's chart. Additionally, other treatment options including medications, modalities, and physical therapy were reviewed with the patient. After review of previous anaesthesic history and IV conscious sedation the patient was deemed safe to proceed with today?s procedure with IV conscious sedation as ASA class II designation. Safety time-out was performed to confirm patient ID, procedure to be performed and site of procedure. IV sedation was accomplished with a combination of 2mg of Versed and 50mcg of Fentanyl was administered by the RN after DO order, titrated to patient comfort during the course of the procedure while the patient remained responsive to all verbal commands In the prone position following sterile prep and drape of the lumbar region, the right L5/S1 posterior neuroforamen was identified fluoroscopically. The skin was anesthetized via a 25-gauge 1.5-inch needle with 1% lidocaine solution. At this point, a 25-gauge 3.5-inch spinal needle was atraumatically introduced and advanced under fluoroscopic guidance through the posterior right L5/S1 neuroforamen to approximately the anterior aspect of the canal. Depth was confirmed on lateral view. Following negative aspiration, injection of approximately 1.5cc of Isovue 200 under live fluoroscopy in the AP view confirmed excellent flow along the nerve root, into the epidural space without vascular or intrathecal uptake observed Radiological data, including multiple fluoroscopic views of the lumbosacral spine, reveal a spinal needle at the right L5/S1 posterior neuroforamen. Subsequent views show flow of contrast material flowing superiorly and inferiorly along the nerve root confirming epidural flow. Subsequently, a test dose of 1.5cc of 1% lidocaine solution was administered and patient was observed for two minutes for signs or symptoms of complications, including abdominal pain, shortness of breath, bilateral upper or lower extremity weakness, nausea and vomiting, prior to steroid injection. At this point, a total of 3cc or 20mg of dexamethasone and 6mg betamethasone was injected without incident. Attention was then refocused to the left L5/S1 level where the identical procedure was replicated. The procedure tolerated the procedure well without signs or symptoms of complications prior to transfer to the recovery area continued monitoring without incident. The patient was then transferred to the recovery area where they were observed for an appropriate time after the injection. The patient reported a VAS score of 7 prior to the procedure and a post-procedure VAS of 0. POST OP INSTRUCTIONS The patient was provided a Pain Log to continue to record their response to the target-specific procedure prior to follow-up visit with their referring physician. Additionally, specific post-injection care instructions and a contact number to our office were provided if concerns arise regarding possible complications associated with the procedure are suspected.
== END 2021-07-12 11:35 | disposition home or self-care (01) ==
LOC: RAD 09:59
PROVIDERS: PCP Family Medicine; Referring Provider Physical Medicine & Rehabilitation; Visit Provider Physical Medicine & Rehabilitation
DX: M48.07 Spinal stenosis, lumbosacral region (principal); M51.17 Intervertebral disc disorders with radiculopathy, lumbosacral region
CPT/HCPCS: 64483; 99152; J0702; J1100; J2250; J3010